=== PATIENT | male | born 1995 | race Caucasian/White ===

== ENCOUNTER 2017-11-27 14:30 | Emergency (ER) | payer BC ==
[~2017-11-27] VITALS: Ht 182.9 cm; Wt 75.6 kg
[2017-11-27 14:43] VITALS: TEMP 36.6; Ht 182.9 cm; Wt 75.6 kg
--- NOTE | 2017-11-27 15:57 | DIAGNOSTIC IMAGING REPORT ---
HEAD WITHOUT CONTRAST (CT) CT DOSE: HISTORY: Trauma Space heater fell onto face TECHNIQUE: Multiaxial CT images of the head were performed without the use of intravenous contrast. A dose lowering technique was utilized adhering to the principles of ALARA. Comparison: None. Findings: The paranasal sinuses and mastoid air cells are clear. The calvarium and skull base are intact. The ventricles and sulci are within normal limits. There is no mass, hematoma, midline shift, or acute infarct. Impression: No acute intracranial abnormality. The above report was generated using voice recognition software. It may contain grammatical, syntax or spelling errors. Electronically signed by: Sergey Heller M.D. 11/27/2017 3:55 PM Dictated Date/Time: 11/27/2017 3:55 PM
--- NOTE | 2017-11-27 16:00 | DIAGNOSTIC IMAGING REPORT ---
FACIAL BONES-MXILLOFAC WITHOUT CT DOSE: 830.54 mGy.cm HISTORY: Trauma Space heater fell onto face TECHNIQUE: Multiaxial CT images of the maxillofacial region were performed and reformatted in the coronal plane without the use of contrast. A dose lowering technique was utilized adhering to the principles of ALARA. COMPARISON: None. FINDINGS: Fracture tip is in bones. All remaining osseous structures the maxillofacial region are unremarkable. Major sinuses are considered clear. Mastoid air cells are clear. Structures the mandible and maxilla otherwise are unremarkable. IMPRESSION: Fracture tip nasal bones. Otherwise negative study. The above report was generated using voice recognition software. It may contain grammatical, syntax or spelling errors. Electronically signed by: Sergey Heller M.D. 11/27/2017 3:58 PM Dictated Date/Time: 11/27/2017 3:56 PM
[2017-11-27] MEDS ORDERED: BACITRACIN OINT 15 GM TUBE EXT ONE (16:45)
--- NOTE | 2017-11-27 16:53 | EMERGENCY ROOM VISIT NOTE ---
History First contact with patient: 14:46 Chief Complaint: NASAL PAIN/INJURY Stated Complaint: POSSIBLE BROKEN NOSE,POSSIBLE STITCHES History of Present Illness The patient is a 22 year old male who presents to the Emergency Room with complaints of a facial injury and headache after a space heater was accidentally dropped off of an upper flight of stairs, and struck the patient in the face. The patient denies any loss of consciousness or neck pain. He is concerned about scarring on the nose as he has a history of keloids. He reports a frontal headache and difficulty breathing from the right nostril. He denies any significant epistaxis or postnasal drip. He denies any other injuries from the fall, and rates his discomfort a 6 out of 10. Tetanus immunization is up-to-date. The patient has had a prior history of a sports- related concussion. Review of Systems 10 system review was performed and was negative except for pertinent positives and negatives as indicated in history of present illness Past Medical/Surgical History Medical Problems: (1) Keloid scar of skin Surgical Problems: (1) History of arthroscopy of shoulder (2) Status post wrist surgery Family History FH: cancer FH: diabetes mellitus Social History Smoking Status: Never Smoker Alcohol Use: occasionally Marital Status: single Occupation Status: [employer] student Current/Historical Medications No Active Prescriptions or Reported Meds Physical Exam Vital Signs Date Time Temp Pulse Resp B/P (MAP) Pulse Ox O2 Delivery O2 Flow Rate FiO2 11/27/17 14:43 36.6 104 20 136/93 96 Room Air Physical Exam CONSTITUTIONAL: Healthy and well nourished. Alert and oriented X 3 with positive affect. GCS 15. Patient does not appear in any acute distress. HEENT: Examination shows a small 4 mm laceration across the bridge of the nose. Using a sterile swab, the laceration does not extend through the dermis. There is no hematoma or active bleeding. Patient does have mild tenderness of the tip of the nasal bones. No epistaxis, septal deviation or hematoma formation. Pupils equal, round and reactive. No subconjunctival hemorrhage or tenderness to palpation of the remaining facial bones. No hemotympanum or raccoon's eyes. OROPHARYNX: No postnasal bleed or dental trauma. NECK: Full active range of motion without discomfort. RESPIRATORY: Clear to auscultation bilaterally with no wheezing, crackles, rhonchi or stridor. CARDIOVASCULAR: Regular rate and rhythm with no murmurs, rubs or gallops. MUSCULOSKELETAL: Full range of motion of all joints without discomfort. INTEGUMENTARY: No rash or other significant dermatologic conditions noted. NEUROLOGIC: No focal neurologic deficits noted. No ataxia. Normal finger to nose test. Negative pronator drift. Facial sensations are intact. Medical Decision & Procedures ER Provider Diagnostic Interpretation: Noncontrast CT of the head does not show any acute fractures or intracranial bleed. Noncontrast CT of the facial bone shows small fractures at the tip of the nasal bones. Radiologist report is as follows: FACIAL BONES-MXILLOFAC WITHOUT CT DOSE: 830.54 mGy.cm HISTORY: Trauma Space heater fell onto face TECHNIQUE: Multiaxial CT images of the maxillofacial region were performed and reformatted in the coronal plane without the use of contrast. A dose lowering technique was utilized adhering to the principles of ALARA. COMPARISON: None. FINDINGS: Fracture tip is in bones. All remaining osseous structures the maxillofacial region are unremarkable. Major sinuses are considered clear. Mastoid air cells are clear. Structures the mandible and maxilla otherwise are unremarkable. IMPRESSION: Fracture tip nasal bones. Otherwise negative study. ED Course Patient history and physical exam were performed. Nurse's notes were reviewed. Vital signs were reviewed and were normal. The patient refused any analgesics. Noncontrast CT of the head was normal. CT of the facial bone shows small fractures at the tip of the nasal bones. I did spend a large amount of time with the patient regarding his nose laceration. The patient is concerned about keloids. I explained that because the laceration does not extend through the dermis, attempted primary approximation using sutures is not recommended given his history of keloids. He also wanted to know if skin glue was appropriate. I again explained that the tissue is perfectly approximated, and that glue can increase risk for infection. I suggested cleaning the wound frequently and keeping it covered with an ointment, along with use of vitamin E oil and a high SPF factor sunblock to minimize scar darkening. The patient also called his mother on his cell phone, and I discussed the injury and recommended treatment of plan with her as well. The patient was in agreement with allowing the wound to heal by secondary intention. The patient was advised that he may certainly have a concussion given his headache, however could also because from injury to the nose. The patient was advised that if he has any persistent headache, he should activities until symptoms improve. He was encouraged to seek further emergent reevaluation for any progressively worsening headache, vomiting, concerning neurologic symptoms or other concerns. Ibuprofen or Tylenol as needed for pain. The patient was happy with plan of care, voiced understanding of all discharge instructions, and rated his overall discomfort a 2 out of 10 at the conclusion of my exam. Medical Decision Medication Reconcilliation Current Medication List: was personally reviewed by me Blood Pressure Screening Patient's blood pressure: Normal blood pressure Impression Primary Impression: Nasal bone fracture Additional Impression: Laceration of nose Departure Information Dispostion Home / Self-Care Prescriptions No Active Prescriptions or Reported Meds Forms HOME CARE DOCUMENTATION FORM, IMPORTANT VISIT INFORMATION Patient Instructions [facility] Additional Instructions Intermittently apply ice for swelling and pain. Ibuprofen or Tylenol as needed for pain. Keep wound clean and covered with bacitracin zinc or Vaseline. After the wound further heals, you may switch to vitamin E oil twice daily for 2 additional weeks. Apply a high SPF factor sunblock for the next year when going outside to prevent scar darkening. If you have any persistent headache, you likely have a concussion. Limit strenuous activities until your headache improves. Seek further emergent reevaluation for any progressively worsening headache or other concerning neurologic symptoms. Problem Qualifiers
[2017-11-27 17:01] VITALS: BP 135/86
[2017-11-27 17:16] VITALS: PULSE 88; O2SAT 97
== END 2017-11-27 17:17 | disposition home or self-care (01) ==
LOC: C.EDB 14:32 → C.EDD 17:17
DX: S02.2XXA Fracture of nasal bones, initial encounter for closed fracture (principal); S01.21XA Laceration without foreign body of nose, initial encounter; W20.8XXA Other cause of strike by thrown, projected or falling object, initial encounter; R51 Headache; L91.0 Hypertrophic scar; Z83.3 Family history of diabetes mellitus